=== PATIENT | female | born 1980 | race Caucasian/White ===

== ENCOUNTER 2016-05-05 08:01 | Observation (INO) ==
--- NOTE | 2016-05-05 08:21 | Emergency Department Note ---
Disposition Clinical Impression: Vertigo Headache Qualifiers: Headache type: unspecified Headache chronicity pattern: unspecified pattern Intractability: intractable Qualified Code(s): R51 - Headache Disposition: Admitted As Inpatient Condition: Good Referrals: Ras Lewis DO [Primary Care Provider] - Forms: ED Satisfaction Letter Time of Disposition: 14:38 Headache HPI - General Chief Complaint: ED Headache Stated Complaint: Nausea vomiting, Head pain, dizziness Time Seen by Provider: 05/05/16 08:11 Source: patient Mode of arrival: wheelchair Limitations: no limitations Nursing Notes Reviewed: Yes Vital Signs Reviewed: Yes - History of Present Illness HPI Narrative: 36-year-old who developed acute onset posterior head pain and severe dizziness to the point she cannot turn her head or move due to dizziness she is very nauseated. States she has been able take any of her medications. Symptoms began at 6 AM. Patient arrives at approximately 3 hours into symptoms. 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 Onset description: sudden, at rest Location: occipital Pain Severity: severe Pain Scale: 9 Quality: aching Improves with: nothing Worsens with: other (This worsens with head movement) Context: occurred at rest Associated symptoms: Reports: none Treatments prior to arrival: none - Related Data Home Medications Medication Instructions Recorded Confirmed Metformin HCl [Glucophage] 1,000 mg PO BID 12/13/14 04/04/16 SUMAtriptan Succinate [Imitrex] 50 mg PO AD PRN 12/13/14 04/04/16 Carvedilol 3.125 mg PO BID 01/01/16 04/04/16 Gabapentin [Neurontin] 300 mg PO TID 01/01/16 04/04/16 Insulin Glargine,Hum.rec.anlog 12 unit SQ HS 01/01/16 04/04/16 [Lantus Solostar] Methocarbamol [Robaxin-750] 750 mg PO Q4H PRN 01/01/16 04/04/16 Sertraline [Zoloft] 100 mg PO DAILY 01/01/16 04/04/16 Simvastatin [Zocor] 20 mg PO HS 01/01/16 04/04/16 Trazodone HCl 100 mg PO HS 01/01/16 04/04/16 Previous Rx's Medication Instructions Recorded Meloxicam [Mobic] 7.5 mg PO DAILY #10 tablet 07/27/15 Amlodipine [Norvasc] 10 mg PO DAILY #30 tablet 04/04/16 Carvedilol [Coreg] 6.25 mg PO BIDWM #60 tablet 04/04/16 Dicyclomine [Bentyl] 10 mg PO QID PRN #20 capsule 04/04/16 Promethazine [Phenergan] 25 mg PO Q6HR PRN #14 tablet 04/04/16 Allergies Allergy/AdvReac Type Severity Reaction Status Date / Time codeine Allergy Hives Verified 04/04/16 15:49 Hydromorphone [From Dilaudid] Allergy See Verified 04/04/16 15:49 Comments morphine Allergy See Verified 04/04/16 15:49 Comments Headache PMH - Past Medical History Medical history: Reports: asthma, diabetes, hyperlipidemia, hypertension, migraine, other Female Surgical History: Reports: appendectomy, , cholecystectomy, hysterectomy, other Psychiatric history: Reports: anxiety, ADHD, depression 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 SPECIALIST 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: Reports: no BRANDING SPECIALIST history, bilateral tubal ligation - Social History Smoking Status: Former smoker Alcohol use: Reports: rarely Drug use: Reports: none Physical Exam - General Limitations: no limitations General appearance: alert, in distress - Head Head exam: atraumatic, normocephalic, normal inspection - Eye Eye exam: Present: normal appearance, PERRL, EOMI - ENT ENT exam: normal exam, normal oropharynx, mucous membranes moist - Neck Neck exam: Present: normal inspection, full ROM, trachea midline - Chest Chest inspection: Present: normal inspection, symmetric chest wall rise - Respiratory Respiratory exam: Present: normal lung sounds bilaterally - Cardiovascular Cardiovascular exam: Present: regular rate - Abdominal Exam Abdominal exam: Present: soft, Non-Tender. Absent: tenderness, distention, guarding, rebound, rigidity - Extremities Exam Extremities exam: Present: normal inspection, full ROM. Absent: tenderness, pedal edema - Expanded Lower Extremity Exam Neurovascular/Tendon exam: Absent: motor deficit, sensory deficit, tendon deficit Gait: not tested/not observed - Back Exam Back exam: Present: normal inspection, full ROM. Absent: tenderness - Neurological Exam Neurological exam: Present: alert, oriented X3. Absent: motor sensory deficit - Psychiatric Psychiatric exam: Present: normal affect, normal mood - Skin Skin exam: Present: warm, dry, intact, normal color Course - Consultations Consultation #1: Rogelio with Dr. Hendrickson who wants an MRI prior to admission. Time: 10:10 Consultation #2: Discussed with Dr. Ha, admit Time: 14:37 Vital Signs Temperature 97.5 F L 05/05/16 08:05 Pulse Rate 93 05/05/16 08:05 Respiratory Rate 18 05/05/16 08:05 Blood Pressure 187/141 05/05/16 08:05 O2 Sat by Pulse Oximetry 95 05/05/16 08:05 Temperature 97.5 F L 05/05/16 08:05 Pulse Rate 100 05/05/16 14:20 Respiratory Rate 16 05/05/16 14:20 Blood Pressure 149/110 05/05/16 14:20 O2 Sat by Pulse Oximetry 93 L 05/05/16 14:20 Oxygen Delivery Oxygen Delivery Room Air Headache - Lab Data Result diagrams: 05/05/16 08:24 05/05/16 08:24 Lab Results 05/05/16 05/05/16 05/05/16 Range/Units 08:24 08:24 08:24 WBC 12.7 H (4.3-11.1) K/mcL RBC 5.00 H (3.82-4.97) M/mcL Hgb 15.3 (11.5-15.4) g/dL Hct 42.4 (35.3-44.9) % MCV 84.8 (83.0-100.0) fL MCH 30.6 (28.0-33.3) pg MCHC 36.1 H (31.6-35.5) g/dL RDW 11.9 (11.5-14.5) % Plt Count 301 (140-400) K/mcL MPV 9.1 L (9.4-12.4) fL Immature Gran % 0.9 (0-4) % Seg Neutrophils % 80.6 % Lymphocytes % 14.7 % Monocytes % 2.5 % Eosinophils % 1.1 % Basophils % 0.2 % Neutrophils # 10.3 H (1.6-8.9) K/mcL Lymphocytes # 1.9 (0.6-4.6) K/mcL Monocytes # 0.3 (0.0-1.3) K/mcL Eosinophils # 0.1 (0.0-0.6) K/mcL Basophils # 0.0 (0.0-0.2) K/mcL Immature Plt Fraction 2.3 (1.1-6.1) % PT 10.4 (9.4-12.1) Seconds INR 1.0 APTT 26.9 (26.0-36.0) Seconds Sodium 138 (136-145) mEq/L Potassium 3.6 (3.5-4.5) mEq/L Chloride 101 (98-109) mEq/L Carbon Dioxide 23 (19-29) mEq/L BUN 14 (7-20) mg/dL Creatinine 0.80 (0.57-1.11) mg/dL Est GFR ( Amer) > 60 (> 60) Est GFR (Non-Af Amer) > 60 (> 60) BUN/Creatinine Ratio 18 (6-26) Glucose 407 H (70-99) mg/dL Calculated Osmolality 304 H (280-300) Calcium 9.6 (8.6-10.8) mg/dL - Radiology Data Radiology results reviewed: Yes I reviewed the patient's radiology results. Angiography CT 05/05/16 08:15 IMPRESSION: 1. No acute intracranial abnormality. 2. Patchy low-attenuation in the right basal ganglia is nonspecific, but could represent sequela of demyelinating disease or less likely chronic microvascular ischemic changes. More focal low-attenuation in the right internal capsule may represent a dilated perivascular space or old lacunar infarction. 3. Normal CTA of the head. 4. Chronic sinusitis and sinonasal polyposis. D/ / 05/05/2016 10:11:20 Hunter Clark MD / Esther Mendez Interpreting Provider: Hunter Clark MD Brain MRI 05/05/16 09:52 IMPRESSION: 1. No acute intracranial abnormality. Specific, no acute infarction. 2. 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 3. 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 D/ / 05/05/2016 14:20:59 Hunter Clark MD / Esther Mendez Interpreting Provider: Hunter Clark MD - EKG Data EKG attestation: Yes I reviewed and interpreted this EKG. EKG shows normal: sinus rhythm Rate: normal Rhythm: NSR Interpretation: no acute changes
[2016-05-05] MEDS: Ondansetron 4 MG/2 ML VIAL IVP ONE ×4 (08:28→12:53)
[2016-05-05] MEDS ORDERED: *HR* Labetalol 20 MG/4 ML SYRINGE IVP ONE (08:32)
[2016-05-05 08:35] LABS: Basophils % 0.2 %; Eosinophils # 0.1 K/mcL (0.0-0.6); Eosinophils % 1.1 %; Hematocrit 42.4 % (35.3-44.9); Hemoglobin 15.3 g/dL (11.5-15.4); Immature Granulocytes % 0.9 % (0-4); Immature Platelets 2.3 % (1.1-6.1); Lymphocytes # 1.9 K/mcL (0.6-4.6); Lymphocytes % 14.7 %; Mean Corpuscular HGB Conc 36.1 g/dL (31.6-35.5); Mean Corpuscular Hemoglobin 30.6 pg (28.0-33.3); Mean Corpuscular Volume 84.8 fL (83.0-100.0); Mean Platelet Volume 9.1 fL (9.4-12.4); Monocytes # 0.3 K/mcL (0.0-1.3); Monocytes % 2.5 %; Neutrophils # 10.3 K/mcL (1.6-8.9); Platelet Count 301 K/mcL (140-400); Red Cell Distribution Width 11.9 % (11.5-14.5); Segmented Neutrophils % 80.6 %
[2016-05-05 08:37] LABS: Prothrombin Time 10.4 Seconds (9.4-12.1)
[2016-05-05 08:40] LABS: Activated Partial Thrombo Time 26.9 Seconds (26.0-36.0)
[2016-05-05 08:43] LABS: BUN/Creatinine Ratio 18 (6-26); Blood Urea Nitrogen 14 mg/dL (7-20); Calcium 9.6 mg/dL (8.6-10.8); Carbon Dioxide 23 mEq/L (19-29); Chloride 101 mEq/L (98-109); Glucose 407 mg/dL (70-99); Osmolality,Calculated 304 (280-300); Potassium 3.6 mEq/L (3.5-4.5); Sodium 138 mEq/L (136-145); eGFR For African Americans > 60 (> 60); eGFR For Non-African Americans > 60 (> 60)
[2016-05-05] MEDS ORDERED: *HR* HYDROcodone/Acet 5/325 mg TABLET PO ONE ×2 (10:59→14:35)
[2016-05-05] MEDS ORDERED: Ondansetron 4 MG/2 ML VIAL ONE (12:49)
[2016-05-05] MEDS ORDERED: Ondansetron 4 MG/2 ML VIAL IVP PRN (15:29)
[2016-05-05] MEDS ORDERED: *HR* OxyCODONE Immed Rel 5 MG TABLET PO PRN (15:29)
[2016-05-05] MEDS ORDERED: Naloxone 0.4 MG/ML INJ IVP PRN (15:29)
[2016-05-05] MEDS ORDERED: Methocarbamol 750 MG TABLET PO PRN (15:31)
[2016-05-05] MEDS ORDERED: Dextrose Gel 15 GM PO PRN ×2 (15:34)
[2016-05-05] MEDS ORDERED: *HR* Dextrose 50 % in Water (Syg) 50 ML SYRINGE IVP PRN (15:34)
[2016-05-05] MEDS ORDERED: D5% in Water 1,000 ML IV PRN (15:34)
[2016-05-05] MEDS: amLODIPine 5 MG TABLET PO SCH (15:35)
[2016-05-05] MEDS ORDERED: *HR* Metoprolol 5 MG/5 ML VIAL IVP PRN (15:42)
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
[2016-05-05 15:58] LABS: Hemoglobin A1C 8.9 %
[2016-05-05 16:28] LABS: Bilirubin,Urine Negative (Negative); Blood,Urine Negative (Negative); Clarity,Urine Clear (Clear); Color,Urine Yellow (Yellow); Glucose,Urine (UA) >=1000 mg/dL (Normal); Ketones,Urine 15 mg/dL (Negative); Leukocyte Esterase,Urine Negative (Negative); Nitrite,Urine Negative (Negative); PH,Urine 6.5 pH Units (5.0-8.0); Protein,Urine >=300 mg/dL (Neg-Trace); Specific Gravity,Urine > 1.030 (1.010-1.025); Urobilinogen,Urine Normal (Normal)
[2016-05-05 16:34] LABS: Amphetamine Screen,Urine Negative ng/mL (Cutoff=1000); Barbiturate Screen,Urine Negative ng/mL (Cutoff=200); Benzodiazepines Screen,Urine Negative ng/mL (Cutoff=200); Cannabinoid Screen,Urine Negative ng/mL (Cutoff = 50); Cocaine Screen,Urine Negative ng/mL (Cutoff= 300); Opiate Screen,Urine Negative ng/mL (Cutoff=300); Phencyclidine Screen,Urine Negative ng/mL (Cutoff=25)
[2016-05-05 16:43] LABS: Bacteria,Urine Few per hpf (None-Few); Squamous Epithelial Cell,Urine Few per lpf (None-Few)
[2016-05-05 17:00] LABS: Magnesium 1.8 mg/dL (1.6-2.6); Phosphorous 4.6 mg/dL (2.3-4.7)
[2016-05-05 17:01] LABS: BUN/Creatinine Ratio 20 (6-26); Blood Urea Nitrogen 15 mg/dL (7-20); Calcium 9.9 mg/dL (8.6-10.8); Carbon Dioxide 24 mEq/L (19-29); Chloride 103 mEq/L (98-109); Glucose 163 mg/dL (70-99); Osmolality,Calculated 296 (280-300); Potassium 3.9 mEq/L (3.5-4.5); Sodium 141 mEq/L (136-145); eGFR For African Americans > 60 (> 60); eGFR For Non-African Americans > 60 (> 60)
[2016-05-05] MEDS: Insulin LISPRO 300 UNITS/3 ML VIAL SQ SCH ×2 (18:03→22:23)
[2016-05-05] MEDS ORDERED: Valproic Acid INJ 1,000 MG in 0.9 % Sodium Chloride 100 ML IVPB ONE (21:03)
[2016-05-05] MEDS ORDERED: Metoclopramide 10 MG/2 ML VIAL IVP ONE (21:03)
[2016-05-05] MEDS ORDERED: diazePAM 5 MG TABLET PO PRN (21:04)
[2016-05-05] MEDS: Insulin DETEMIR 100 UNIT/ML X5UNITS SQ SCH (22:23)
[2016-05-05] MEDS: Gabapentin 300 MG CAPSULE PO SCH (22:24)
[2016-05-05] MEDS: traZODone 50 MG TABLET PO SCH (22:24)
[2016-05-05] MEDS ORDERED: 0.9 % Sodium Chloride 1,000 ML ONE (23:52)
[2016-05-06 05:00] LABS: Basophils % 0.1 %; Eosinophils # 0.1 K/mcL (0.0-0.6); Hematocrit 39.4 % (35.3-44.9); Hemoglobin 13.8 g/dL (11.5-15.4); Immature Granulocytes % 0.4 % (0-4); Lymphocytes % 21.8 %; Mean Corpuscular Hemoglobin 30.6 pg (28.0-33.3); Mean Corpuscular Volume 87.4 fL (83.0-100.0); Mean Platelet Volume 9.4 fL (9.4-12.4); Monocytes # 0.3 K/mcL (0.0-1.3); Monocytes % 3.2 %; Neutrophils # 6.6 K/mcL (1.6-8.9); Platelet Count 315 K/mcL (140-400); Red Blood Count 4.51 M/mcL (3.82-4.97); Red Cell Distribution Width 12.1 % (11.5-14.5); Segmented Neutrophils % 73.5 %
[2016-05-06 05:05] LABS: BUN/Creatinine Ratio 26 (6-26); Blood Urea Nitrogen 24 mg/dL (7-20); Calcium 9.6 mg/dL (8.6-10.8); Carbon Dioxide 23 mEq/L (19-29); Chloride 105 mEq/L (98-109); Glucose 219 mg/dL (70-99); Osmolality,Calculated 301 (280-300); Phosphorous 3.7 mg/dL (2.3-4.7); Potassium 3.8 mEq/L (3.5-4.5); Sodium 140 mEq/L (136-145); eGFR For African Americans > 60 (> 60); eGFR For Non-African Americans > 60 (> 60)
[2016-05-06] MEDS: *HR* Heparin 5,000 UNIT/ML VIAL SQ SCH ×2 (06:19→17:04)
[2016-05-06] MEDS: Gabapentin 300 MG CAPSULE PO SCH ×3 (08:47→21:12)
[2016-05-06] MEDS: amLODIPine 5 MG TABLET PO SCH (08:47)
[2016-05-06] MEDS: Insulin LISPRO 300 UNITS/3 ML VIAL SQ SCH ×4 (08:48→21:13)
--- NOTE | 2016-05-06 09:36 | Electrocardiograph Report ---
[facility] Test Date: 2016-05-05 Pat Name: Shu Gomez Department: 103 Room: 3B24 Gender: F Post Anesthesia Care Unit Nurse: MSC : 1980 Requested By: Enrike Brody Order Number: [id number] Reading MD: Pablo Lema MD Measurements Intervals [place] Rate: 87 P: 40 NM: 168 QRS: 1 QRSD: 95 T: 35 QT: 392 QTc: 436 Interpretive Statements SINUS RHYTHM VOLTAGE CRITERIA FOR LVH NONSPECIFIC T-WAVE ABNORMALITY Electronically Signed On 05-06-16 09:35:38 EST by Pablo Lema MD
--- NOTE | 2016-05-06 09:39 | Neurology Progress Note ---
Date of Encounter: 05/06/16 Time of Encounter: 09:59 Assessment and Plan (1) Vestibular migraine Current Visit: Yes Status: Acute Patient reports improvement of vertigo overnight. Her hypertension is well controlled at this time. Will discuss with Dr. Hendrickson for further recommendations. (2) Hypertensive urgency Current Visit: Yes Status: Resolved Initially presented with blood pressure readings of >200sys and >130 ariza Reports history of poorly controlled hypertension in the past. Her blood pressure has improved significantly overnight. Continue aggressive control of her hypertension. (3) Multiple lacunar infarcts Current Visit: Yes Status: Chronic MRI with evidence of old lacunar infarcts likely 2/2 hypertension. Recommend low dose aspirin once blood pressure is under better control. Subjective Principal diagnosis: HTN urgency, Vestibular Migraine Interval history: patient reports improvement of her symptoms overnight. She ambulated without difficulty and is able to turn her head without exacerbating symptoms. She reports pain has improved from 9-5 today. Her blood pressure has greatly improved as well. No other complaints. Objective - Constitutional Vitals: Temp Pulse Resp BP Pulse Ox 97.8 F 95 18 113/74 96 05/06/16 07:10 05/06/16 07:10 05/06/16 07:10 05/06/16 07:10 05/06/16 07:10 General appearance: Present: A&O X 3, pleasant, no acute distress - Head Head exam: Present: atraumatic, normal inspection, normocephalic - Eye Eye exam: Present: EOMI, PERRL. Absent: conjunctival injection - Extremities Exam Extremities exam: Present: full ROM, normal inspection - Neurological Exam Sensorimotor examination: Present: intact Motor Examination: Present: grossly full strength in all extremities (Patient has no focal or lateralized deficits. She has generalized fatigue which is improved from yesterday.) Motor examination - left side: 4/5: deltoids, biceps, triceps Sensation intact: Present: intact Reflex and gait examination: intact Mental Status Examination: Present: awake, alert, oriented to person, oriented to place, oriented to time, follows commands appropriately, answers questions appropriately, no agnosia, no aphasia Cranial nerve examination: Present: PERRL, EOMI, visual roper intact, sensory to face intact, mastication intact, no facial asymmetry is present, no dysarthria, hearing is intact symmetrically, soft palate elevates bilaterally upon phonation Cerebellar examination: Present: performs finger to nose and heel to aldana symmetrically without ataxia Ocular dysmotility: gaze-evoked nystagmus Results - Laboratory Findings CBC and BMP: 05/06/16 03:49 05/06/16 03:49 Abnormal lab findings: Abnormal lab results BUN 24 mg/dL (7-20) H 05/06/16 03:49 Glucose 219 mg/dL (70-99) H 05/06/16 03:49 POC Glucose 193 (58-89) H 05/06/16 07:12 Hemoglobin A1c 8.9 % (-5.6) H 05/05/16 08:24 Calculated Osmolality 301 (280-300) H 05/06/16 03:49 Ur Specific [place] > 1.030 (1.010-1.025) H 05/05/16 16:10 Urine Protein >=300 mg/dL (Neg-Trace) H 05/05/16 16:10 Urine Glucose (UA) >=1000 mg/dL (Normal) H 05/05/16 16:10 Urine Ketones 15 mg/dL (Negative) H 05/05/16 16:10 Consult Discharge Plan - Plan Referrals: Ras Lewis DO [Primary Care Provider] -
[2016-05-06] MEDS ORDERED: Ketorolac 30 MG/ML VIAL IVP ONE (13:25)
[2016-05-06] MEDS ORDERED: Prochlorperazine 10 MG/2 ML VIAL IV ONE (13:26)
--- NOTE | 2016-05-06 13:29 | Internal Med Progress Note ---
Date of Encounter: 05/06/16 Time of Encounter: 10:30 - Assessment and plan (1) Vestibular migraine Current Visit: Yes Status: Acute Assessment and plan: Patient complaining of an occipitally located headache. She states that narcotics are not helping. We will attempt migraine cocktail Benadryl, Compazine, Toradol. Possible DC on Imitrex. Possible discharge later today pending clinical outcomes with blood pressure control. She is tolerating a regular diet. On examination, patient with 4/5 upper extremity strength bilaterally no other focal neurological weakness is present. Extensive imaging without acute processes. CTA of head negative. Brain MRI negative for acute processes. Urinalysis negative. Tox screen negative. Neurology on board. ITS Impressions Angiography CT 05/05/16 08:15 IMPRESSION: 1. No acute intracranial abnormality. 2. Patchy low-attenuation in the right basal ganglia is nonspecific, but could represent sequela of demyelinating disease or less likely chronic microvascular ischemic changes. More focal low-attenuation in the right internal capsule may represent a dilated perivascular space or old lacunar infarction. 3. Normal CTA of the head. 4. Chronic sinusitis and sinonasal polyposis. D/ / 05/05/2016 10:11:20 Hunter Clark MD / Esther Mendez Interpreting Provider: Hunter Clark MD Brain MRI 05/05/16 09:52 IMPRESSION: 1. No acute intracranial abnormality. Specific, no acute infarction. 2. 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 3. 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 D/ / 05/05/2016 14:20:59 Hunter Clark MD / Esther Mendez Interpreting Provider: Hunter Clark MD (2) Vertigo Current Visit: Yes Status: Acute Assessment and plan: Has improved greatly overnight. Continue meclizine as needed. PT consultation pending (3) Hypertensive urgency Current Visit: Yes Status: Resolved Assessment and plan: Currently normotensive. Her home medications of carvedilol 3.125 mg twice a day and Norvasc 10 mg daily have been continued. She received IV Lopressor and IV hydralazine yesterday, these been discontinued to allow for blood pressure control with pills. By mouth metoprolol has been added and she has been normotensive today. We will continue to monitor closely. Possible discharge later today pending clinical outcomes and blood pressure readings. (4) Chronic back pain Current Visit: Yes Status: Chronic Qualifiers: Back pain location: low back pain Back pain laterality: bilateral Sciatica presence: unspecified whether sciatica present Qualified Code(s): M54.5 - Low back pain; G89.29 - Other chronic pain (5) DVT prophylaxis Current Visit: Yes Status: Acute Assessment and plan: Subcutaneous heparin (6) Depression Current Visit: Yes Status: Chronic Assessment and plan: Mood and affect appropriate during my interaction with her. She denies suicidal ideation Qualifiers: Depression Type: unspecified Qualified Code(s): F32.9 - Major depressive disorder, single episode, unspecified (7) Leukocytosis, unspecified Current Visit: Yes Status: Resolved Assessment and plan: Results. Likely stress related. No signs of active infection. Qualifiers: Leukocytosis type: unspecified Qualified Code(s): D72.829 - Elevated white blood cell count, unspecified (8) Multiple lacunar infarcts Current Visit: Yes Status: Chronic Assessment and plan: No acute processes identified on extensive imaging with CTA of the head and brain MRI. (9) Diabetes mellitus Current Visit: Yes Status: Chronic Assessment and plan: Poorly controlled with an A1c of 8.9%. Continue sliding scale while admitted. - Subjective Interval history: Patient seen and examined. On examination, patient sitting upright in bed talking on the phone. Patient is alert and oriented 3 and currently complains of a headache though states it has improved since yesterday. Patient also stating her dizziness has decreased to the point where it is now tolerable. She also states the mild weakness to her upper extremities has improved. She states she was able to eat her breakfast. - Constitutional Vitals: Temp Pulse Resp BP Pulse Ox 98.3 F 91 18 116/77 95 05/06/16 10:41 05/06/16 10:41 05/06/16 10:41 05/06/16 10:41 05/06/16 10:41 General appearance: Present: A&O X 3, pleasant, no acute distress, obese, answers questions appropriately - Head Head exam: Present: atraumatic, normocephalic - Eye Eye exam: Present: PERRL, conjuntiva pink, sclera anicteric Pupils: Present: PERRL - Neck Neck exam general surgery: Present: supple, trachea midline. Absent: lymphadenopathy - Respiratory Respiratory exam: Present: CTAB. Absent: accessory muscle use, rales, respiratory distress, rhonchi, wheezes - Cardiovascular Cardiovascular exam: Present: RRR, +S1, +S2. Absent: diastolic murmur, gallop, rubs, systolic murmur - GI/Abdominal GI/Abdominal exam: Present: normal bowel sounds, soft, no peritoneal signs. Absent: distended, tenderness - Extremities Exam Extremities exam: Present: warm, radial pulses palpable and symetrical. Absent : calf tenderness, cyanotic, pedal edema - Neurological Exam Neurological exam: Present: alert, CN II-XII intact, oriented X3, no focal deficits. Absent: pronater drift, facial droop, speech deficit - Expanded Neurological Exam Neurological exam expanded: Present: protecting the airway Patient oriented to: Present: person, place, time Speech: Present: fluid speech Neuro motor strength exam: LUE: 4, RUE: 4, LLE: 5, RLE: 5 Coma Scale Eye Opening: Spontaneous Coma Scale Motor Response: Obeys Commands Coma Scale Verbal Response: Oriented Coma Scale Total: 15 - Skin Skin exam: Present: dry, intact, normal color, warm Internal Medicine: Result - Labs CBC & Chem 7: 05/06/16 03:49 05/06/16 03:49 Labs: Short CBC 05/06/16 Range/Units 03:49 WBC 9.0 (4.3-11.1) K/mcL Hgb 13.8 D (11.5-15.4) g/dL Hct 39.4 (35.3-44.9) % Plt Count 315 (140-400) K/mcL Neutrophils # 6.6 (1.6-8.9) K/mcL BMP 05/05/16 05/06/16 16:33 03:49 Sodium 141 140 Potassium 3.9 3.8 Chloride 103 105 Carbon Dioxide 24 23 BUN 15 24 H Creatinine 0.74 0.94 Glucose 163 H 219 H Calcium 9.9 9.6 Urine 05/05/16 Range/Units 16:10 Urine Color Yellow (Yellow) Urine Clarity Clear (Clear) Urine pH 6.5 (5.0-8.0) pH Units Ur Specific [place] > 1.030 H (1.010-1.025) Urine Protein >=300 H (Neg-Trace) mg/dL Urine Glucose (UA) >=1000 H (Normal) mg/dL - ABG Interpretation ABG results: PT/INR, D-dimer PT 10.4 Seconds (9.4-12.1) 05/05/16 08:24 Consult Discharge Plan - Plan Referrals: Karina Briseno DO [Non-Partnered Physician] - 05/07/16 1:45 pm Ras Lewis DO [Primary Care Provider] -
[2016-05-06] MEDS: traZODone 50 MG TABLET PO SCH (21:12)
[2016-05-06] MEDS: Insulin DETEMIR 100 UNIT/ML X5UNITS SQ SCH (21:13)
[2016-05-07] MEDS: methylPREDNISolone 125 MG/2 ML VIAL IVP SCH ×2 (06:01→17:55)
[2016-05-07] MEDS: *HR* Heparin 5,000 UNIT/ML VIAL SQ SCH ×2 (06:01→17:55)
[2016-05-07] MEDS: SUMAtriptan succinate 25 MG TABLET PO PRN ×2 (06:08→11:23)
[2016-05-07] MEDS: amLODIPine 5 MG TABLET PO SCH (09:03)
[2016-05-07] MEDS: Insulin LISPRO 300 UNITS/3 ML VIAL SQ SCH ×4 (09:04→21:49)
[2016-05-07] MEDS: Gabapentin 300 MG CAPSULE PO SCH ×3 (09:04→21:49)
--- NOTE | 2016-05-07 10:25 | Neurology Progress Note ---
<Kwame Navarro - Last Filed: 05/07/16 10:52> Date of Encounter: 05/07/16 Time of Encounter: 10:52 Assessment and Plan (1) Vestibular migraine Current Visit: Yes Status: Acute Reports return of her headache this AM. Her blood pressure has also increased overnight. Denies any vertigo, just having pain in the back of her head. Recommend continued aggressive control of the patient's HTN. Will discuss with Dr. Hendrickson for further recommendations. (2) Hypertensive urgency Current Visit: Yes Status: Chronic Her blood pressure has increased to 1602/110s with return of her headache. Recommend to continue aggressive control of her HTN. (3) Multiple lacunar infarcts Current Visit: Yes Status: Chronic Continue low dose ASA Subjective Principal diagnosis: HTN urgency, Vestibular Migraine Interval history: Patient reports no vertigo but states her headache has worsened since yesterday. She reports improvement overnight but woke up at 04:00 with pain in the back of her head. Her blood pressure has started to increase again in the 160s/110s. Reports the weakness in her arms has resolved. Objective - Constitutional Vitals: Temp Pulse Resp BP Pulse Ox 97.5 F L 99 17 165/110 96 05/07/16 07:07 05/07/16 07:07 05/07/16 07:07 05/07/16 09:20 05/07/16 07:07 General appearance: Present: A&O X 3, pleasant, no acute distress - Head Head exam: Present: atraumatic, normal inspection, normocephalic - Eye Eye exam: Present: EOMI, normal appearance. Absent: conjunctival injection, nystagmus - Extremities Exam Extremities exam: Present: full ROM, normal inspection - Neurological Exam Sensorimotor examination: Present: intact Motor Examination: Present: grossly full strength in all extremities (Patient has no focal or lateralized deficits. ) Sensation intact: Present: intact Reflex and gait examination: intact Mental Status Examination: Present: awake, alert, oriented to person, oriented to place, oriented to time, follows commands appropriately, answers questions appropriately, no agnosia, no aphasia Cranial nerve examination: Present: PERRL, EOMI, visual roper intact, sensory to face intact, mastication intact, no facial asymmetry is present, no dysarthria, hearing is intact symmetrically, soft palate elevates bilaterally upon phonation Cerebellar examination: Present: performs finger to nose and heel to aldana symmetrically without ataxia Ocular dysmotility: gaze-evoked nystagmus Results - Laboratory Findings CBC and BMP: 05/06/16 03:49 05/06/16 03:49 Abnormal lab findings: Abnormal lab results BUN 24 mg/dL (7-20) H 05/06/16 03:49 Glucose 219 mg/dL (70-99) H 05/06/16 03:49 POC Glucose 193 (58-89) H 05/06/16 20:30 Hemoglobin A1c 8.9 % (-5.6) H 05/05/16 08:24 Calculated Osmolality 301 (280-300) H 05/06/16 03:49 Ur Specific [place] > 1.030 (1.010-1.025) H 05/05/16 16:10 Urine Protein >=300 mg/dL (Neg-Trace) H 05/05/16 16:10 Urine Glucose (UA) >=1000 mg/dL (Normal) H 05/05/16 16:10 Urine Ketones 15 mg/dL (Negative) H 05/05/16 16:10 Consult Discharge Plan - Plan Referrals: Karina Briseno DO [Non-Partnered Physician] - 05/07/16 1:45 pm Ras Lewis DO [Primary Care Provider] - <Bright Hendrickson - Last Filed: 05/07/16 15:04> Date of Encounter: 05/07/16 Time of Encounter: 14:47 Assessment and Plan (1) Headache Current Visit: Yes Status: Acute Patient continues to complain of pain which is 5/10 localized to the occipital nuchal region. The pain is not reproducible with deep palpation. Perhaps this is just lingering musculoskeletal pain associated with the previous migraine. Her neurologic examination and neuroimaging of all been normal. I will try her on a dose of IV valproate 1000 mg. The documentation in the history of HPI and plan were at least partially created by [employer] voice recognition technology by Dr. Hendrickson. Errors in grammar, wording or other phrases may exist. If errors are found after the documentation signed, they will be addressed individually in the addendum section of this document when appropriate. Qualifiers: Headache type: unspecified Headache chronicity pattern: unspecified pattern Intractability: intractable Qualified Code(s): R51 - Headache (2) Vestibular migraine Current Visit: Yes Status: Acute (3) Hypertensive urgency Current Visit: Yes Status: Acute Subjective Interval history: The chart was reviewed, patient was seen and examined along with Dr. Navarro. I agree with his history as stated above. Patient did complain of a headache at about 5 out of 10. She denies vertigo she has minimal photophobia, denies numbness tingling weakness and ataxia or confusion. Objective - Constitutional Vitals: Temp Pulse Resp BP Pulse Ox 98 F 100 15 168/110 93 L 05/07/16 10:50 05/07/16 10:50 05/07/16 10:50 05/07/16 10:50 05/07/16 10:50 - Neurological Exam Sensorimotor examination: Present: intact Motor Examination: Present: full strength in all major muscle groups Motor examination - right side: 5/5: deltoids, biceps, triceps, mothercraft nurse, hip flexors, tibialis Anterior, quadriceps, toe extension (EHL), plantarflexion Motor examination - left side: 5/5: deltoids, biceps, triceps, hip flexors, mothercraft nurse , quadriceps, tibialis Anterior, toe extension (EHL), plantarflexion Results - Laboratory Findings CBC and BMP: 05/06/16 03:49 05/06/16 03:49 Abnormal lab findings: Abnormal lab results BUN 24 mg/dL (7-20) H 05/06/16 03:49 Glucose 219 mg/dL (70-99) H 05/06/16 03:49 POC Glucose 193 (58-89) H 05/06/16 20:30 Hemoglobin A1c 8.9 % (-5.6) H 05/05/16 08:24 Calculated Osmolality 301 (280-300) H 05/06/16 03:49 Ur Specific [place] > 1.030 (1.010-1.025) H 05/05/16 16:10 Urine Protein >=300 mg/dL (Neg-Trace) H 05/05/16 16:10 Urine Glucose (UA) >=1000 mg/dL (Normal) H 05/05/16 16:10 Urine Ketones 15 mg/dL (Negative) H 05/05/16 16:10
--- NOTE | 2016-05-07 12:40 | Internal Med Progress Note ---
Date of Encounter: 05/07/16 Time of Encounter: 09:30 - Assessment and plan (1) Hypertensive urgency Current Visit: Yes Status: Acute Assessment and plan: Blood pressure remains uncontrolled. Home medication carvedilol increased and Norvasc continued. She was also started on lisinopril. Renal functioning normal. We will obtain retroperitoneal ultrasound. Patient is saying this is an ongoing problem with her over the past 6 years. She stated this started when she became and has had high blood pressure ever since. She states that she had a ruptured placenta as a result of her hypertension. This is likely the causative factor of her headache. We will continue to monitor closely. She is not safe to be discharged until better control of her blood pressure is obtained. Will continue to seek to avoid IV antihypertensives (2) Vestibular migraine Current Visit: Yes Status: Acute Assessment and plan: Abated with migraine cocktail however came back. Patient seen Imitrex helped a little bit but not a lot. Likely causative factors including uncontrolled hypertension. Blood pressure medications adjusted, will aim to control her blood pressure. Avoid narcotic medications. Neurology on board. Recommend continuing blood pressure control. 05/06/16 Patient complaining of an occipitally located headache. She states that narcotics are not helping. We will attempt migraine cocktail Benadryl, Compazine, Toradol. Possible DC on Imitrex. Possible discharge later today pending clinical outcomes with blood pressure control. She is tolerating a regular diet. On examination, patient with 4/5 upper extremity strength bilaterally no other focal neurological weakness is present. Extensive imaging without acute processes. CTA of head negative. Brain MRI negative for acute processes. Urinalysis negative. Tox screen negative. Neurology on board. ITS Impressions Angiography CT 05/05/16 08:15 IMPRESSION: 1. No acute intracranial abnormality. 2. Patchy low-attenuation in the right basal ganglia is nonspecific, but could represent sequela of demyelinating disease or less likely chronic microvascular ischemic changes. More focal low-attenuation in the right internal capsule may represent a dilated perivascular space or old lacunar infarction. 3. Normal CTA of the head. 4. Chronic sinusitis and sinonasal polyposis. D/ / 05/05/2016 10:11:20 Hunter Clark MD / Esther Mendez Interpreting Provider: Hunter Clark MD Brain MRI 05/05/16 09:52 IMPRESSION: 1. No acute intracranial abnormality. Specific, no acute infarction. 2. 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 3. 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 D/ / 05/05/2016 14:20:59 Hunter Calrk MD / Esther Mendez Interpreting Provider: Hunter Clark MD (3) Vertigo Current Visit: Yes Status: Resolved (4) Chronic back pain Current Visit: Yes Status: Chronic Qualifiers: Back pain location: low back pain Back pain laterality: bilateral Sciatica presence: unspecified whether sciatica present Qualified Code(s): M54.5 - Low back pain; G89.29 - Other chronic pain (5) DVT prophylaxis Current Visit: Yes Status: Acute Assessment and plan: Subcutaneous heparin (6) Depression Current Visit: Yes Status: Chronic Assessment and plan: Mood and affect appropriate during my interaction with her. She denies suicidal ideation Qualifiers: Depression Type: unspecified Qualified Code(s): F32.9 - Major depressive disorder, single episode, unspecified (7) Leukocytosis, unspecified Current Visit: Yes Status: Resolved Qualifiers: Leukocytosis type: unspecified Qualified Code(s): D72.829 - Elevated white blood cell count, unspecified (8) Multiple lacunar infarcts Current Visit: Yes Status: Chronic Assessment and plan: No acute processes identified on extensive imaging with CTA of the head and brain MRI. Of note, patient was noted to be telling staff and several family members that she just had a stroke 2 days ago. She was again informed that she did not have any acute stroke and that prior strokes were all that were uncovered during her imaging. (9) Diabetes mellitus Current Visit: Yes Status: Chronic Assessment and plan: Poorly controlled with an A1c of 8.9%. Continue sliding scale while admitted. - Subjective Interval history: Patient seen and examined. On examination, patient sitting upright in bed talking on the phone. Patient is alert and oriented 3 and currently complains of a headache to the back of her head. She states that she is eating well. She is endorsing concern and fear regarding her blood pressure. - Constitutional Vitals: Temp Pulse Resp BP Pulse Ox 98 F 100 15 168/110 93 L 05/07/16 10:50 05/07/16 10:50 05/07/16 10:50 05/07/16 10:50 05/07/16 10:50 General appearance: Present: A&O X 3, pleasant, no acute distress, obese, answers questions appropriately - Head Head exam: Present: atraumatic, normocephalic - Eye Eye exam: Present: PERRL, conjuntiva pink, sclera anicteric Pupils: Present: PERRL - Neck Neck exam general surgery: Present: supple, trachea midline. Absent: lymphadenopathy - Respiratory Respiratory exam: Present: CTAB. Absent: accessory muscle use, rales, respiratory distress, rhonchi, wheezes - Cardiovascular Cardiovascular exam: Present: RRR, +S1, +S2. Absent: diastolic murmur, gallop, rubs, systolic murmur - GI/Abdominal GI/Abdominal exam: Present: normal bowel sounds, soft, no peritoneal signs. Absent: distended, tenderness - Extremities Exam Extremities exam: Present: warm, radial pulses palpable and symetrical. Absent : calf tenderness, cyanotic, pedal edema - Neurological Exam Neurological exam: Present: alert, CN II-XII intact, oriented X3, no focal deficits, strengths equal and symetr throughout. Absent: pronater drift, facial droop, speech deficit - Skin Skin exam: Present: dry, intact, normal color, warm Internal Medicine: Result - Labs CBC & Chem 7: 05/06/16 03:49 05/06/16 03:49 - ABG Interpretation ABG results: PT/INR, D-dimer PT 10.4 Seconds (9.4-12.1) 05/05/16 08:24 Consult Discharge Plan - Plan Referrals: Karina Briseno DO [Non-Partnered Physician] - 05/07/16 1:45 pm Ras Lewis DO [Primary Care Provider] -
[2016-05-07] MEDS ORDERED: Valproic Acid INJ 1,000 MG in 0.9 % Sodium Chloride 100 ML IVPB ONE (15:01)
[2016-05-07] MEDS: Insulin DETEMIR 100 UNIT/ML X5UNITS SQ SCH (21:49)
[2016-05-07] MEDS: traZODone 50 MG TABLET PO SCH (21:49)
[2016-05-08] MEDS: methylPREDNISolone 125 MG/2 ML VIAL IVP SCH ×2 (06:23→17:05)
[2016-05-08] MEDS: *HR* Heparin 5,000 UNIT/ML VIAL SQ SCH ×2 (06:23→17:05)
[2016-05-08] MEDS: Insulin LISPRO 300 UNITS/3 ML VIAL SQ SCH ×4 (07:56→20:45)
[2016-05-08] MEDS: amLODIPine 5 MG TABLET PO SCH (07:56)
[2016-05-08] MEDS: Gabapentin 300 MG CAPSULE PO SCH ×3 (07:56→20:44)
--- NOTE | 2016-05-08 10:01 | Neurology Progress Note ---
<Kwame Navarro - Last Filed: 05/08/16 09:59> Date of Encounter: 05/08/16 Time of Encounter: 09:59 Assessment and Plan (1) Vestibular migraine Current Visit: Yes Status: Acute His HEENT improved each day. She continues to have pain in the occipital region of her head. She has had a CTA and a brain MRI here which show old lacunar infarctions in the basal ganglia and frontal lobes. She has also had a prolonged history of uncontrolled hypertension which is currently being addressed and worked up. From a neurologic standpoint, the patient may go home with butalbital #15 tabs and follow-up with her primary care provider. Neurology to sign off. (2) Hypertensive urgency Current Visit: Yes Status: Acute Aggressive management of the patient's hypertension. (3) Multiple lacunar infarcts Current Visit: Yes Status: Chronic Continue low-dose aspirin. Subjective Principal diagnosis: HTN urgency, Vestibular Migraine Interval history: Patient reports headache 4/10. this is slightly better from yesterday. She does report a small amount of vertigo today. She denies any other symptoms. She does report she had a renal ultrasound which showed a kidney stone but was otherwise normal. No other complaints. Objective - Constitutional Vitals: Temp Pulse Resp BP Pulse Ox 97.6 F 75 15 161/108 98 05/08/16 07:16 05/08/16 07:16 05/08/16 07:16 05/08/16 07:16 05/08/16 07:16 General appearance: Present: A&O X 3, pleasant, no acute distress - Head Head exam: Present: atraumatic, normal inspection, normocephalic - Eye Eye exam: Present: EOMI, normal appearance. Absent: conjunctival injection - Extremities Exam Extremities exam: Present: full ROM, normal inspection - Neurological Exam Sensorimotor examination: Present: intact Motor Examination: Present: full strength in all major muscle groups Sensation intact: Present: intact Reflex and gait examination: intact Mental Status Examination: Present: awake, alert, oriented to person, oriented to place, oriented to time, follows commands appropriately, answers questions appropriately, no agnosia, no aphasia Cranial nerve examination: Present: PERRL, EOMI, visual roper intact, sensory to face intact, mastication intact, no facial asymmetry is present, no dysarthria, hearing is intact symmetrically Cerebellar examination: Present: performs finger to nose and heel to aldana symmetrically without ataxia Ocular dysmotility: gaze-evoked nystagmus Results - Laboratory Findings CBC and BMP: 05/06/16 03:49 05/06/16 03:49 Abnormal lab findings: Abnormal lab results BUN 24 mg/dL (7-20) H 05/06/16 03:49 Glucose 219 mg/dL (70-99) H 05/06/16 03:49 POC Glucose 361 (58-89) H 05/07/16 20:41 Hemoglobin A1c 8.9 % (-5.6) H 05/05/16 08:24 Calculated Osmolality 301 (280-300) H 05/06/16 03:49 Ur Specific [place] > 1.030 (1.010-1.025) H 05/05/16 16:10 Urine Protein >=300 mg/dL (Neg-Trace) H 05/05/16 16:10 Urine Glucose (UA) >=1000 mg/dL (Normal) H 05/05/16 16:10 Urine Ketones 15 mg/dL (Negative) H 05/05/16 16:10 Consult Discharge Plan - Plan Referrals: Karina Briseno DO [Non-Partnered Physician] - 05/07/16 1:45 pm Ras Lweis DO [Primary Care Provider] - <Bright Hendrickson - Last Filed: 05/08/16 12:50> Date of Encounter: 05/08/16 Time of Encounter: 12:47 Assessment and Plan (1) Headache Current Visit: Yes Status: Acute Qualifiers: Headache type: unspecified Headache chronicity pattern: unspecified pattern Intractability: intractable Qualified Code(s): R51 - Headache (2) Vestibular migraine Current Visit: Yes Status: Acute At this point I believe that Shu can be discharged home with butalbital as listed above. I see no evidence of any organic cause for her ongoing headache. I will defer further management of her headaches to her primary care provider. I will reevaluate her at your request. (3) Hypertensive urgency Current Visit: Yes Status: Acute Subjective Interval history: The chart was reviewed, patient was seen and examined independently. She is awake alert and oriented 3. She has complaints of vertigo however I did not see nystagmus. Still complains of a small residual headache which is 4 on a scale of 10. I believe that there is some embellishment here. Objective - Constitutional Vitals: Temp Pulse Resp BP Pulse Ox 98.0 F 91 15 148/90 97 05/08/16 11:26 05/08/16 11:26 05/08/16 11:26 05/08/16 11:26 05/08/16 11:26 - Neurological Exam Motor examination - right side: 5/5: deltoids, biceps, triceps, cook candy, hip flexors, tibialis Anterior Motor examination - left side: 5/5: deltoids, biceps, triceps, hip flexors, cook candy , tibialis Anterior Cerebellar examination: Present: no gait ataxia Results - Laboratory Findings CBC and BMP: 05/06/16 03:49 05/06/16 03:49 Abnormal lab findings: Abnormal lab results BUN 24 mg/dL (7-20) H 05/06/16 03:49 Glucose 219 mg/dL (70-99) H 05/06/16 03:49 POC Glucose 361 (58-89) H 05/07/16 20:41 Hemoglobin A1c 8.9 % (-5.6) H 05/05/16 08:24 Calculated Osmolality 301 (280-300) H 05/06/16 03:49 Ur Specific [place] > 1.030 (1.010-1.025) H 05/05/16 16:10 Urine Protein >=300 mg/dL (Neg-Trace) H 05/05/16 16:10 Urine Glucose (UA) >=1000 mg/dL (Normal) H 05/05/16 16:10 Urine Ketones 15 mg/dL (Negative) H 05/05/16 16:10
[2016-05-08] MEDS: SUMAtriptan succinate 25 MG TABLET PO PRN (17:05)
--- NOTE | 2016-05-08 17:09 | Internal Med Progress Note ---
Date of Encounter: 05/08/16 Time of Encounter: 14:30 - Assessment and plan (1) Hypertensive urgency Current Visit: Yes Status: Acute Assessment and plan: Blood pressure is well controlled until 7 AM this morning when she became hypertensive again. Unknown causation at this time. We will perform overnight pulse oximetry to rule out sleep apnea. Home dose of amlodipine 10 mg has been continued, Coreg dosage has been doubled, lisinopril was added yesterday however any effective so that dosage was also increased. Patient remains hypertensive, HCTZ added. Retroperitoneal ultrasound unremarkable. Will also obtain chest x-ray and echocardiogram. In review of her chart, echocardiogram from 2011 revealing diastolic dysfunction with ejection fraction of 60-65%. We will also rule out primary aldosteronism. Renal functioning normal. ITS Impressions Retroperitoneum Ultrasound 05/07/16 14:30 IMPRESSION: Nonobstructive right-sided nephrolithiasis. Mild right-sided pyelocaliectasis, not felt to be significant. Otherwise unremarkable bilateral renal ultrasound. Unremarkable urinary bladder ultrasound. D/ / 05/07/2016 15:43:04 Yahir Arce MD / oliverio Interpreting Provider: Yahir Arce MD Echocardiogram from 05/05/11 impression: Technically adequate exam. LVEF 60-65%. The LV mitral inflow and tissue Doppler demonstrates impaired relaxation indicating diastolic dysfunction. Left atrium within normal limits. Trivial/ trace tricuspid regurgitation. No pericardial effusion. Clinical correlation suggested. 05/07/16 Blood pressure remains uncontrolled. Home medication carvedilol increased and Norvasc continued. She was also started on lisinopril. Renal functioning normal. We will obtain retroperitoneal ultrasound. Patient is saying this is an ongoing problem with her over the past 6 years. She stated this started when she became and has had high blood pressure ever since. She states that she had a ruptured placenta as a result of her hypertension. This is likely the causative factor of her headache. We will continue to monitor closely. She is not safe to be discharged until better control of her blood pressure is obtained. Will continue to seek to avoid IV antihypertensives (2) Vestibular migraine Current Visit: Yes Status: Acute Assessment and plan: Abated with migraine cocktail however came back. Patient seen Imitrex helped a little bit but not a lot. Likely causative factors including uncontrolled hypertension. Blood pressure medications adjusted, will aim to control her blood pressure. Avoid narcotic medications. Neurology on board. Recommend continuing blood pressure control. Neurology has signed off at this time and recommend patient going home with butalbital 15 tablets and following up with her primary care provider. 05/06/16 Patient complaining of an occipitally located headache. She states that narcotics are not helping. We will attempt migraine cocktail Benadryl, Compazine, Toradol. Possible DC on Imitrex. Possible discharge later today pending clinical outcomes with blood pressure control. She is tolerating a regular diet. On examination, patient with 4/5 upper extremity strength bilaterally no other focal neurological weakness is present. Extensive imaging without acute processes. CTA of head negative. Brain MRI negative for acute processes. Urinalysis negative. Tox screen negative. Neurology on board. ITS Impressions Angiography CT 05/05/16 08:15 IMPRESSION: 1. No acute intracranial abnormality. 2. Patchy low-attenuation in the right basal ganglia is nonspecific, but could represent sequela of demyelinating disease or less likely chronic microvascular ischemic changes. More focal low-attenuation in the right internal capsule may represent a dilated perivascular space or old lacunar infarction. 3. Normal CTA of the head. 4. Chronic sinusitis and sinonasal polyposis. D/ / 05/05/2016 10:11:20 Hunter Clark MD / Esther Mendez Interpreting Provider: Hunter Clark MD Brain MRI 05/05/16 09:52 IMPRESSION: 1. No acute intracranial abnormality. Specific, no acute infarction. 2. 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 3. 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 D/ / 05/05/2016 14:20:59 Hunter Clark MD / Esther Mendez Interpreting Provider: Hunter Clark MD (3) Vertigo Current Visit: Yes Status: Resolved Assessment and plan: Has improved greatly overnight. Continue meclizine as needed. PT consultation recommended outpatient physical therapy, will need to be set up by primary care provider. (4) Chronic back pain Current Visit: Yes Status: Chronic Qualifiers: Back pain location: low back pain Back pain laterality: bilateral Sciatica presence: unspecified whether sciatica present Qualified Code(s): M54.5 - Low back pain; G89.29 - Other chronic pain (5) DVT prophylaxis Current Visit: Yes Status: Acute Assessment and plan: Subcutaneous heparin (6) Depression Current Visit: Yes Status: Chronic Assessment and plan: Mood and affect appropriate during my interaction with her. She denies suicidal ideation Qualifiers: Depression Type: unspecified Qualified Code(s): F32.9 - Major depressive disorder, single episode, unspecified (7) Leukocytosis, unspecified Current Visit: Yes Status: Resolved Assessment and plan: Results. Likely stress related. No signs of active infection. Qualifiers: Leukocytosis type: unspecified Qualified Code(s): D72.829 - Elevated white blood cell count, unspecified (8) Multiple lacunar infarcts Current Visit: Yes Status: Chronic Assessment and plan: No acute processes identified on extensive imaging with CTA of the head and brain MRI. Of note, patient was noted to be telling staff and several family members that she just had a stroke 2 days ago. She was again informed that she did not have any acute stroke and that prior strokes were all that were uncovered during her imaging. (9) Diabetes mellitus Current Visit: Yes Status: Chronic Assessment and plan: Poorly controlled with an A1c of 8.9%. Continue sliding scale while admitted. - Subjective Interval history: Patient seen and examined. On examination, patient sitting upright in bed talking on the phone. Patient is alert and oriented 3 and currently complains of a headache to the back of her head. She states that she is eating well. - Constitutional Vitals: Temp Pulse Resp BP Pulse Ox 97.5 F L 101 14 164/94 96 05/08/16 15:31 05/08/16 15:31 05/08/16 15:31 05/08/16 15:31 05/08/16 15:31 General appearance: Present: A&O X 3, pleasant, no acute distress, obese, answers questions appropriately - Head Head exam: Present: atraumatic, normocephalic - Eye Eye exam: Present: PERRL, conjuntiva pink, sclera anicteric Pupils: Present: PERRL - Neck Neck exam general surgery: Present: supple, trachea midline. Absent: lymphadenopathy - Respiratory Respiratory exam: Present: CTAB. Absent: accessory muscle use, rales, respiratory distress, rhonchi, wheezes - Cardiovascular Cardiovascular exam: Present: RRR, +S1, +S2. Absent: diastolic murmur, gallop, rubs, systolic murmur - GI/Abdominal GI/Abdominal exam: Present: normal bowel sounds, soft, no peritoneal signs. Absent: distended, tenderness - Extremities Exam Extremities exam: Present: warm, radial pulses palpable and symetrical. Absent : calf tenderness, cyanotic, pedal edema - Neurological Exam Neurological exam: Present: alert, CN II-XII intact, normal gait, oriented X3, no focal deficits, strengths equal and symetr throughout. Absent: pronater drift, facial droop, speech deficit - Skin Skin exam: Present: dry, intact, normal color, warm Internal Medicine: Result - Labs CBC & Chem 7: 05/06/16 03:49 05/06/16 03:49 - ABG Interpretation ABG results: PT/INR, D-dimer PT 10.4 Seconds (9.4-12.1) 05/05/16 08:24 - Impressions Impressions Retroperitoneum Ultrasound 05/07/16 14:30 IMPRESSION: Nonobstructive right-sided nephrolithiasis. Mild right-sided pyelocaliectasis, not felt to be significant. Otherwise unremarkable bilateral renal ultrasound. Unremarkable urinary bladder ultrasound. D/ / 05/07/2016 15:43:04 Yahir Arce MD / [email or web address] Interpreting Provider: Yahir Arce MD Consult Discharge Plan - Plan Referrals: Karina Briseno DO [Non-Partnered Physician] - 05/07/16 1:45 pm Ras Lewis DO [Primary Care Provider] -
[2016-05-08] MEDS: hydroCHLOROthiazide 25 MG TABLET PO SCH (18:23)
[2016-05-08] MEDS: Insulin DETEMIR 100 UNIT/ML X5UNITS SQ SCH (20:45)
[2016-05-08 21:31] LABS: Protein/Creatinine Ratio,Urine 0.24 mg/mg (0-0.20)
[2016-05-08] MEDS: traZODone 50 MG TABLET PO SCH (23:20)
[2016-05-09] MEDS: methylPREDNISolone 125 MG/2 ML VIAL IVP SCH (05:36)
[2016-05-09] MEDS: *HR* Heparin 5,000 UNIT/ML VIAL SQ SCH (05:38)
--- NOTE | 2016-05-09 07:31 | Cardiology Consult Note ---
<Asher Kline - Last Filed: 05/09/16 09:45> Date of Encounter: 05/09/16 Time of Encounter: 08:00 Assessment and Plan (1) Hypertensive urgency Current Visit: Yes Status: Acute Per Cardiology: On multiple antihypertensive agents. Currently systolic blood pressures in the 130s to 150s. Further management per primary service. (2) Headache Current Visit: Yes Status: Acute Per Cardiology: In setting of hypertensive urgency. Neurology consult completed. Further management per primary service. Qualifiers: Headache type: unspecified Headache chronicity pattern: unspecified pattern Intractability: intractable Qualified Code(s): R51 - Headache (3) Chest pain Current Visit: Yes Status: Acute Per Cardiology: Cardiology consult for chest pain. Atypical and occurs with elevated blood pressures and resolves once blood pressures controlled. Risk factors for CAD include diabetes mellitus type 2, hypertension, hyperlipidemia, and past history nicotine abuse. Negative troponins noted in 2016, however no troponins during this hospital stay. Reports negative stress test in 2007. We'll check troponin-- noted to be 0.00. Patient currently not on telemetry, will apply and monitor-- telemetry reviewed shows sinus rhythm in the 80s with no events. ECG shows sinus rhythm in the 80s with no signs of ischemia. Echo shows EF preserved at 60%, mild diastolic dysfunction,valvular dysfunction, no segmental wall motion abnormalities. Discussed and reviewed with Dr. Kunz, will sign off , reconsult as needed, follow-up as outpatient. Can consider stress test in outpatient setting if deemed clinically appropriate if symptoms continue once blood pressure optimized. Patient agreeable to plan. Qualifiers: Chest pain type: unspecified Qualified Code(s): R07.9 - Chest pain, unspecified Discussion w patient/family: The assessment and plan as outlined above was discussed with the patient who expressed understanding and agreement. All questions were answered. Thank you for involving us in the care of your patient. Please call with any questions. History of Present Illness Consult date: 05/09/16 Requesting physician: Alondra Leiva Consult reason: CP, HTN Chief complaint: SAEED History of present illness: Ms. Gomez is a 36 year old female with a relevant past medical history of diabetes mellitus type 2, hypertension, hyperlipidemia, anxiety, depression, migraines, asthma, past history nicotine abuse. Reports dad may have had a myocardial infarction age 36. Patient reports develops midsternal chest heaviness with radiation to the back of her neck and throbbing sensations when blood pressure elevated. She reports is been ongoing now for years. She reports symptoms resolve when blood pressure becomes controlled. She denies any chest pain with exertional activities. She denies any syncope, falls, any active bleeding or blood loss. Reports headache today. Past Med Surg Social Fam HX - Past Medical History Source: patient, old records reviewed Medical history: asthma, diabetes, hyperlipidemia, hypertension, migraine, other Psychiatric history: anxiety, ADHD, depression - Past Surgical History Surgical History: appendectomy, , cholecystectomy, hysterectomy, other - Social History Smoking Status: Former smoker Smokeless Tobacco Status: No Alcohol use: rarely Drug use: none Medications and Allergies Metformin HCl [Glucophage] 1,000 mg PO BID 12/13/14 [History] SUMAtriptan Succinate [Imitrex] 50 mg PO AD PRN 12/13/14 [History] Meloxicam [Mobic] 7.5 mg PO DAILY #10 tablet 07/27/15 [Rx] Carvedilol 3.125 mg PO BID 01/01/16 [History] Gabapentin [Neurontin] 300 mg PO TID 01/01/16 [History] Insulin Glargine,Hum.rec.anlog [Lantus Solostar] 12 unit SQ HS 01/01/16 [History ] Methocarbamol [Robaxin-750] 750 mg PO Q4H PRN 01/01/16 [History] Sertraline [Zoloft] 100 mg PO DAILY 01/01/16 [History] Simvastatin [Zocor] 20 mg PO HS 01/01/16 [History] Trazodone HCl 100 mg PO HS 01/01/16 [History] Amlodipine [Norvasc] 10 mg PO DAILY #30 tablet 04/04/16 [Rx] Allergies codeine Allergy (Verified 04/04/16 15:49) Hives Hydromorphone [From Dilaudid] Allergy (Verified 04/04/16 15:49) See Comments HIVES, CONVULSIONS, VOMITING morphine Allergy (Verified 04/04/16 15:49) See Comments HIVES, CONVULSIONS, VOMITING All Systems Review: A 10-system review of systems was performed and is negative for pertinent findings except as documented above in the HPI. - Constitutional Constitutional: fatigue, headache(s) - Cardiovascular Cardiovascular: as per HPI, chest pain at rest Physical Examination Vital Signs, Last 4 Hours Temp Pulse Resp BP Pulse Ox 05/09/16 07:06 98.2 F 74 16 152/104 96 General: Conversant, No Apparent Distress HEENT: Atraumatic, Normocephaly Neck: No JVD, Normal carotid pulses Cardiac: Reg Rate and Rhythm, Normal S1 and S2, No Murmur Lungs: Normal Breath Sounds, No Wheeze, Rales, Rhonchi Neuro: Alert and responsive, No focal deficits noted, Other (Anxious) Abdomen: Soft, Non-Tender, Other (Obese) Skin: No rashes noted on visualized skin Musculoskeletal: No Chest Wall Tenderness Extremities: No Edema, Normal Pulses Results 05/06/16 03:49 05/06/16 03:49 Laboratory Tests 05/05/16 05/05/16 05/06/16 16:10 16:10 03:49 Magnesium 2.0 Ur Leukocyte Esterase Negative Protein/Creatinin Ratio Urine Total Protein Urine Opiates Screen Negative Ur Barbiturates Screen Negative Ur Phencyclidine Scrn Negative Ur Amphetamines Screen Negative U Benzodiazepines Scrn Negative Urine Cocaine Screen Negative U Marijuana (THC) Screen Negative 05/08/16 21:17 Magnesium Ur Leukocyte Esterase Protein/Creatinin Ratio 0.24 H Urine Total Protein 16 H Urine Opiates Screen Ur Barbiturates Screen Ur Phencyclidine Scrn Ur Amphetamines Screen U Benzodiazepines Scrn Urine Cocaine Screen U Marijuana (THC) Screen ITS Impressions Angiography CT 05/05/16 08:15 IMPRESSION: 1. No acute intracranial abnormality. 2. Patchy low-attenuation in the right basal ganglia is nonspecific, but could represent sequela of demyelinating disease or less likely chronic microvascular ischemic changes. More focal low-attenuation in the right internal capsule may represent a dilated perivascular space or old lacunar infarction. 3. Normal CTA of the head. 4. Chronic sinusitis and sinonasal polyposis. D/ / 05/05/2016 10:11:20 Hunter Clark MD / Esther Mendez Interpreting Provider: Hunter Clark MD Brain MRI 05/05/16 09:52 IMPRESSION: 1. No acute intracranial abnormality. Specific, no acute infarction. 2. 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 3. 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 D/ / 05/05/2016 14:20:59 Hunter Clark MD / Esther Mendez Interpreting Provider: Hunter Clark MD Retroperitoneum Ultrasound 05/07/16 14:30 IMPRESSION: Nonobstructive right-sided nephrolithiasis. Mild right-sided pyelocaliectasis, not felt to be significant. Otherwise unremarkable bilateral renal ultrasound. Unremarkable urinary bladder ultrasound. D/ / 05/07/2016 15:43:04 Yahir Arce MD / oliverio Interpreting Provider: Yahir Arce MD Chest X-Ray 05/08/16 17:13 IMPRESSION: 1. No acute cardiopulmonary disease. D/ / Eliud Oreilly MD / Eliud Oreilly MD Interpreting Provider: Eliud Oreilly MD Intake & Output 05/06/16 05/07/16 05/08/16 05/09/16 23:59 23:59 23:59 23:59 Intake Total 740 / 740 1879 / 1880 860 / 860 Output Total 1000 / 1000 1600 / 1600 1088 / 1088 Balance -260 / -260 1880 / 1880 -740 / -740 -1088 / -1088 Weight 99.1 kg 100.1 kg 99.5 kg Active Medications Amlodipine Besylate (Norvasc) 10 mg PO DAILY [place] PRN Reason: Protocol Stop: 11/04/16 15:01 Last Admin: 05/08/16 07:56 Dose: 10 mg Carvedilol (Coreg) 6.25 mg PO BIDWM [place] PRN Reason: Protocol Stop: 11/06/16 18:01 Last Admin: 05/08/16 17:05 Dose: 6.25 mg Dextrose/Water (Dextrose 50% (Syg)) 25 ml IVP AD PRN PRN Reason: Hypoglycemia Stop: 11/04/16 15:35 Diazepam (Valium) 5 mg PO HS PRN PRN Reason: Insomnia Stop: 11/05/16 21:01 Gabapentin (Neurontin) 300 mg PO TID [place] Stop: 11/04/16 21:01 Last Admin: 05/08/16 20:44 Dose: 300 mg Glucagon (Glucagen) 1 mg IM ONCE PRN PRN Reason: Hypoglycemia Stop: 11/04/16 15:35 Glucose (Gluctose) 15 gm PO ONCE PRN PRN Reason: Hypoglycemia Stop: 11/04/16 15:35 Glucose (Gluctose) 30 gm PO ONCE PRN PRN Reason: Hypoglycemia Stop: 11/04/16 15:35 Heparin Sodium (Porcine) (Heparin) 5,000 unit SQ Q12HR [place] Stop: 11/05/16 06:01 Last Admin: 05/09/16 05:38 Dose: 5,000 unit Hydrochlorothiazide (Hydrochlorothiazide) 25 mg PO DAILY [place] PRN Reason: Protocol Stop: 11/07/16 17:31 Last Admin: 05/08/16 18:23 Dose: 25 mg Dextrose (Dextrose 5%) 1,000 mls @ 100 mls/hr IV CONT PRN PRN Reason: HYPOGLYCEMIA Stop: 11/04/16 15:35 Insulin Detemir (Levemir) 12 unit SQ HS [place] Stop: 11/04/16 21:01 Last Admin: 05/08/16 20:45 Dose: 12 unit Insulin Human Lispro (Humalog) 0 units SQ TIDAC [place] PRN Reason: Protocol Stop: 11/04/16 16:31 Last Admin: 05/08/16 17:04 Dose: 14 units Insulin Human Lispro (Humalog) 0 units SQ HS [place] PRN Reason: Protocol Stop: 11/04/16 21:01 Last Admin: 05/08/16 20:45 Dose: 14 units Lisinopril (Zestril) 20 mg PO DAILY [place] PRN Reason: Protocol Stop: 11/08/16 09:01 Meclizine HCl (Antivert) 25 mg PO TID PRN PRN Reason: DIZZINESS Stop: 11/04/16 18:10 Last Admin: 05/07/16 13:05 Dose: 25 mg Meloxicam (Mobic) 7.5 mg PO DAILY [facility] Stop: 11/05/16 09:01 Last Admin: 05/08/16 07:56 Dose: 7.5 mg Methocarbamol (Robaxin) 750 mg PO Q4H PRN PRN Reason: Muscle Spasm Stop: 11/04/16 15:32 Methylprednisolone (Solu-Medrol) 60 mg IVP Q12HR [facility] Stop: 11/06/16 06:01 Last Admin: 05/09/16 05:36 Dose: 60 mg Naloxone HCl (Narcan) 0.4 mg IVP Q2MIN PRN PRN Reason: Opioid Reversal Stop: 11/04/16 15:30 Ondansetron HCl (Zofran) 4 mg IVP Q6HR PRN PRN Reason: Nausea And Vomiting Stop: 11/04/16 15:30 Last Admin: 05/07/16 13:08 Dose: 4 mg Simvastatin (Zocor) 20 mg PO [facility] PRN Reason: Protocol Stop: 11/04/16 21:01 Last Admin: 05/08/16 20:44 Dose: 20 mg Sumatriptan Succinate (Imitrex) 25 mg PO Q2H PRN PRN Reason: Migraine Headache Stop: 11/05/16 16:19 Last Admin: 05/08/16 17:05 Dose: 25 mg Trazodone HCl (Trazodone) 100 mg PO HS [facility] Stop: 11/04/16 21:01 Last Admin: 05/08/16 23:20 Dose: 100 mg - Imaging and Cardiology Chest Xray: report reviewed Echo: pending - EKG Interpretation EKG results cardiology: personally reviewed, normal ECG, sinus rhythm, other ( Not currently on telemetry) Consult Discharge Plan - Plan Referrals: Karina Briseno DO [Non-Partnered Physician] - 05/07/16 1:45 pm Ras Lewis DO [Primary Care Provider] - <Nicolle Kunz - Last Filed: 05/09/16 11:15> Date of Encounter: 05/09/16 Assessment and Plan Discussion w patient/family: The assessment and plan as outlined above was discussed with the patient and/or family members who expressed understanding and agreement. All questions were answered. Thank you for involving us in the care of your patient. Please call with any questions. History of Present Illness History of present illness: Ms. Gomez is a 36 year old female All Systems Review: A 10-system review of systems was performed and is negative for pertinent findings except as documented above in the HPI. Physical Examination Vital Signs, Last 4 Hours Temp Pulse Resp BP Pulse Ox 05/09/16 11:12 97.6 F 86 15 150/93 95 05/09/16 09:00 98.2 F 74 16 152/104 96 Results 05/06/16 03:49 05/06/16 03:49 Lab Results 05/09/16 08:07 Troponin I 0.00 - Attending Attestation I examined this patient and my medical decision-making was reviewed with the CONCRETE INSPECTOR/PA/Advanced Practice Nurse/Resident Physician. I agree with the documented findings, disposition and treatment plan. Ms. Gomez is a 36 year old female presenting with atypical chest symptoms, normal ECG and no troponin elevation. Additionally, her LV systolic function and RV function are normal. While she does have CV risk factors, her presentation is not consistent with an acute coronary syndrome. I have recommended to the patient to improve her diet, reduced her sodium intake and focus on healthy lifestyle behaviors. We will sign off. Please call with questions.
[2016-05-09] MEDS: hydroCHLOROthiazide 25 MG TABLET PO SCH (08:11)
[2016-05-09] MEDS: Insulin LISPRO 300 UNITS/3 ML VIAL SQ SCH (08:11)
[2016-05-09] MEDS: Gabapentin 300 MG CAPSULE PO SCH (08:11)
[2016-05-09] MEDS: amLODIPine 5 MG TABLET PO SCH (08:11)
--- NOTE | 2016-05-09 08:58 | ECHO - Doppler Report ---
Echocardiogram Name: Shu Gomez Date of Study: 05/09/2016 Date: 1980 Ht: 70.0 in Medical Record#: [id number] Age: 36 Wt: 214.0 lb Gender: Female BSA: 2.15 Order #: [id number] Location: [facility] Room #: 3B24 Reading Physician: Nicolle Kunz DO Economic Manager: Dedra Hernandez RVT, RD Ordering Physician: Alondra Leiva CNP Primary Physician: None Indications: Hypertension Impressions: LVEF 60%. Normal left ventricular size and systolic function. There is evidence of mild diastolic dysfunction of the left ventricle. Normal right ventricular size and function. No significant valvular dysfunction. No pulmonary hypertension. Left Ventricular Wall Motion: Rest Echo Findings All wall segments showed normal motion. Findings: Study Quality * Technically adequate exam. ECG Findings * Normal sinus rhythm. Left Ventricle * LVEF 65%. * Normal LV chamber size, wall thickness and function. * Mild left ventricular diastolic dysfunction. Aortic Valve * No aortic regurgitation. * Trileaflet aortic valve. * Normal aortic valve structure. * No aortic stenosis. Mitral Valve * Normal mitral valve structure. * No mitral stenosis. * Trace mitral regurgitation. Right Ventricle * Normal right ventricular structure and function. Left Atrium * Normal left atrial size. Right Atrium * Normal right atrial size. Tricuspid Valve * Tricuspid valve not well visualized. * Trace tricuspid regurgitation. Pulmonic Valve * Pulmonic valve is not well visualized. * No pulmonic stenosis. * No pulmonic regurgitation. Pulmonary Artery * Pulmonary artery not well visualized. Interatrial Septum * Interatrial septum not well evaluated. IVC * The IVC is not well evaluated. Pericardium * There is no pericardial effusion present. Aorta * Normally sized aortic root. History Hypertension Diabetes Hypercholesteremia Family History of CAD 2012 a Previous Echo was performed. Measurements: BP: 139/ 89 2D Normal Values IVSd: 1.10 cm 0.6 - 1.0 cm LVIDd: 4.60 cm 3.7 - 5.6 cm LVPWd: 1.10 cm 0.6 - 1.1 cm LVIDs: 3.10 cm 1.5 - 3.6 cm AO: 3.00 cm < 4.0 cm LA: 3.10 cm 2.0 - 4.0cm %FS: 32.60 cm >25 % LA volume: 47 Mitral Valve Peak E:.93 m/sec Peak A:.93 m/sec E/A Ratio:1 Tricuspid Valve TV Regurg Peak Grad: 16.00mmHg TV Regurg Peak Artemio: 1.97m/sec Updated by Nicolle Kunz on 05/09/2016 8:52:46 AM electronically signed on 05/09/2016 8:53:46 AM with status of Final Wall Motion Bhakta: 1=Normal, 2=Hypokinesis, 3=Akinesis, 4=Dyskinesis, 5=Aneurysmal, 6=Hyperkinetic, X=Not Visualized (Blank)=Missing
[2016-05-09] MEDS ORDERED: Lisinopril 20 MG TABLET PO SCH (09:00)
[2016-05-09 11:13] VITALS: BP 150/93
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
== END 2016-05-09 14:12 | disposition home or self-care (01) ==
LOC: EMEROO 08:01 → 3BNU 08:01 → SUATTDRO 14:48 → 3BNU 16:10
PROVIDERS: ADMIT Internal Medicine; ATTEND Internal Medicine